=== PATIENT | female | born 1960 ===

== ENCOUNTER 2016-11-28 15:24 | Outpatient (CLI) | payer OTHER | END 2016-11-28 15:25 | disposition home or self-care (01) | LOC: LABHHL 15:24 → LAB 15:24 | PROVIDERS: ATTEND Internal Medicine Gastroenterology | DX: Z12.11 Encounter for screening for malignant neoplasm of colon (principal) | CPT/HCPCS: 88305 ==

== ENCOUNTER 2019-12-24 10:47 | Outpatient (CLI) | payer OTHER ==
--- NOTE | 2019-12-24 14:23 | Mammography Report ---
DIGITAL SCREENING MAMMOGRAM WITH CAD, 12/24/2019 INDICATION: Routine screening mammography. TECHNIQUE: Digital bilateral 2D mammography was obtained in the craniocaudal and mediolateral obliq ue projections. This examination was interpreted with the benefit of Computer-Aided Detection analysi s. COMPARISON: None available. FINDINGS: Breast Density: There are scattered areas of fibroglandular density. A right retroareolar focal asymmetry requires additional imaging. No architectural distortion or susp icious calcifications. There is no evidence of dominant mass, suspicious calcifications or architectu ral distortion in the left breast. IMPRESSION: Right asymmetry requiring additional imaging. Recommend recall for right lateral and nipp le spot compression views and right breast ultrasound if needed. Follow up recommendation: Special View: Spot Category 0: Incomplete. Needs additional imaging evaluation and/or prior mammograms for comparison. A "normal" or negative report should not discourage follow up or biopsy of a clinically significant f inding. A written summary of these findings will be mailed to the patient. The patient will be entered into a mammography reporting system which will generate a reminder letter for the patient's next appointmen t at the appropriate interval. The [employer] recommends yearly mammograms starting at age 40 and continuing as l denia as a woman is in good health. Breast MRI is recommended for women with an approximate 20-25% or greater lifetime risk of breast cancer, including women with a strong family history of breast or ova sharona cancer or who have been treated for Hodgkin's disease. Signer Name: Geoff River MD Signed: 12/24/2019 2:18 PM Workstation Name: [id number]
== END 2019-12-24 10:48 | disposition home or self-care (01) ==
LOC: MAMMO 10:47
PROVIDERS: ATTEND Family Medicine
DX: Z12.31 Encounter for screening mammogram for malignant neoplasm of breast (principal)
CPT/HCPCS: 77067